=== PATIENT | female | born 1970 | race Caucasian/White ===

== ENCOUNTER → 2016-10-31 | Outpatient (CLI) | payer BC ==
--- NOTE | 2016-11-01 09:07 | MR ---
EXAMINATION TYPE: MR knee LT wo con DATE OF EXAM: 10/31/2016 9:22 PM COMPARISON: Prior left knee MRI 10 October 2014, plain film 23 October 2016 HISTORY: Lt knee pain x 2 years, fall TECHNIQUE: Multiplanar, multisequence imaging of the left knee is performed without IV contrast. FINDINGS: MEDIAL MENISCUS: Within the posterior horn of the medial meniscus there is some linear increased sign al which extends in a horizontal fashion more pronounced than on prior exam as seen on coronal image 20 of proton-density data set, lateral meniscus is intact LATERAL MENISCUS: Anterior and posterior horns are intact without tear. CRUCIATE LIGAMENTS: The anterior and posterior cruciate ligaments are intact and unremarkable. COLLATERAL LIGAMENTS: There is fluid signal along the medial collateral ligament, the ligament is att enuated as compared to previous exam suggestive of partial tear EXTENSOR MECHANISM: Visualized quadriceps and patellar tendons are intact. EFFUSION: Minimal suprapatellar effusion present. POPLITEAL CYST: No popliteal/maya cyst. TRICOMPARTMENT SPACES: Osteoarthritic changes are present, there is tricompartmental marginal spurrin g CARTILAGE: Similar to prior exam, grade 2 to grade III chondromalacia change is present in the medial lateral compartments, posterior patella, cartilage fragment seen on previous exam is no longer prese nt. BONE MARROW SIGNAL: Similar prior exam, red marrow reconversion is noted. OTHER: Subcutaneous edema changes present. IMPRESSION: Osteoarthritic change, chondromalacia as described. Findings along the medial collateral ligament sug gesting partial tear. Horizontal tear of the posterior horn of the medial meniscus is suspected seen best on the coronal image.
== END | disposition home or self-care (01) ==
LOC: RADMRIMAIN 20:33
PROVIDERS: ATTEND Orthopaedic Surgery
DX: M17.12 Unilateral primary osteoarthritis, left knee (principal); M22.42 Chondromalacia patellae, left knee

== ENCOUNTER → 2016-12-08 | Outpatient (CLI) | payer BC ==
[2016-12-08 09:05] LABS: EKG EKG PERFORMED
[2016-12-08 09:35] LABS: Anion Gap 8 mmol/L; Carbon Dioxide 28 mmol/L (22-30); Chloride 105 mmol/L (98-107); Potassium 4.3 mmol/L (3.5-5.1); Sodium 141 mmol/L (137-145)
[2016-12-08 10:57] LABS: Basophils % (A) 1 %; CH 29.8; CHCM 32.6; Eosinophils # (A) 0.2 k/uL (0-0.7); Eosinophils % (A) 3 %; HCT 43.9 % (34.0-46.0); HDW 2.25; HGB 14.3 gm/dL (11.4-16.0); Luc # (Auto) 0.13; Luc % (Auto) 2; Lymphocytes # (A) 2.2 k/uL (1.0-4.8); Lymphocytes % (A) 30 %; MCH 29.9 pg (25.0-35.0); MCHC 32.5 g/dL (31.0-37.0); MCV 91.9 fL (80.0-100.0); Mean Platelet Volume 8.3; Monocytes # (A) 0.3 k/uL (0-1.0); Monocytes % (A) 4 %; Neutrophils # (A) 4.5 k/uL (1.3-7.7); Neutrophils % (A) 61 %; RBC 4.78 m/uL (3.80-5.40); RDW 13.1 % (11.5-15.5); WBC 7.4 k/uL (3.8-10.6); WBC (Perox) 7.69
== END | disposition home or self-care (01) ==
LOC: LABPAT 08:56
PROVIDERS: ATTEND Orthopaedic Surgery
DX: Z01.810 Encounter for preprocedural cardiovascular examination (principal); M23.92 Unspecified internal derangement of left knee; Z01.812 Encounter for preprocedural laboratory examination
CPT/HCPCS: 80051; 85025; 93005

== ENCOUNTER 2016-12-11 08:37 | Day surgery (SDC) | payer BC ==
[2016-12-08 14:42] VITALS: BMI 34.7
--- NOTE | 2016-12-10 18:24 | HP ---
DATE OF ADMISSION: Francisca Hooker is a 46-year-old patient seen with progressive left knee pain. We discussed options, she elected to proceed with left knee arthroscopy. Consent was obtained. Her past medical history is asthma. Past surgical history is breast biopsy. section. Daily medications: 1. Singulair. 2. Strattera. ALLERGIES ARE NONE. SOCIAL HISTORY: Patient denies current tobacco use. Physical evaluation of the left knee: Range of motion is -3/4 to 115 degrees, tenderness medial joint line. Positive medial Imani's. Ligaments are stable. Hip rotation without pain. Distal neurovascular exam intact. Radiographs of the left knee revealed mild osteoarthritis. MRI of the left knee revealed medial meniscal tear and partial medial collateral ligament tear. IMPRESSION: Internal derangement of the left knee with medial meniscal tear. PLAN: Left arthroscopy with partial meniscectomy and debridement.
[~2016-12-11 08:37] MED LIST: DEXAMETHASONE SOD PHOSPHATE 10 MG/ML 1 ML VIAL IV ONE; LACTATED RINGERS 1,000 ML IV SCH; LIDOCAINE 1% 20 ML VIAL (10MG/ML) FOR IV START INTRADERMA PRN; MIDAZOLAM 2 MG/2 ML VIAL IV PRN; SCOPOLAMINE 1.5MG/72HR PATCH TRANSDERM ONE; ceFAZolin 2 GM in SODIUM CHLORIDE 0.9% 100 ML IVPB ONE
[2016-12-11] MEDS: ONDANSETRON 4 MG/2 ML VIAL IVP ONE ×2 (09:30→11:05)
[2016-12-11] MEDS ORDERED: PROPOFOL 10 MG/ML 20 ML VIAL IV ONE (09:45)
[2016-12-11] MEDS ORDERED: SUCCINYLCHOLINE CHLORIDE 100 MG/5 ML SYR IV ONE (09:45)
[2016-12-11] MEDS ORDERED: MIDAZOLAM 2 MG/2 ML VIAL ONE (09:45)
[2016-12-11] MEDS ORDERED: fentaNYL (PF) 50 MCG/ML 2 ML AMP ONE (09:45)
[2016-12-11] MEDS ORDERED: LIDOCAINE 1% INJ 10MG/ML (20 ML MDV) ONE (09:45)
[2016-12-11] MEDS ORDERED: HYDROmorphone (PF) 1 MG/ML ONE (09:45)
[2016-12-11] MEDS ORDERED: BUPIVACAIN-EPI 0.25%-1:200,000 30 ML VIAL INTRAARTIC ONE (10:25)
--- NOTE | 2016-12-11 10:44 | P.OP ---
Date of Procedure: 12/11/16 Preoperative Diagnosis: Internal derangement left knee Postoperative Diagnosis: 1. Tear medial and lateral meniscus left knee 2. Grade 2/3 chondromalacia medial femoral condyle left knee 3. Grade 3/4 chondromalacia lateral femoral condyle left knee 4. Grade 3/4 chondromalacia lateral tibial plateau left knee 5. Grade 3/4 chondromalacia patella left knee 6. Reactive synovitis medial and suprapatellar compartments left knee Procedure(s) Performed: 1. Arthroscopic partial medial and lateral meniscectomy left knee 2. Arthroscopic chondroplasty medial femoral condyle left knee 3. Arthroscopic chondroplasty lateral femoral condyle left knee 4. Arthroscopic chondroplasty lateral tibial plateau left knee 5. Arthroscopic chondroplasty patella left knee 6. Arthroscopic partial synovectomy medial and suprapatellar compartments left knee Implants: None Anesthesia: KIKO, local Surgeon: Kodi Escobar Estimated Blood Loss (ml): 10 Pathology: none sent Condition: stable Disposition: PACU Indications for Procedure: 46-year-old patient seen with progressive left knee pain. After having treatment options discussed, she elected to proceed with arthroscopy. Operative Findings: see description of procedure Description of Procedure: Patient was taken to the operative suite. Patient underwent a general anesthetic by the department of anesthesia. Patient was given preoperative antibiotics. The left lower extremity was placed in a well-padded arthroscopic leg merino. The left leg was prepped and draped in the normal sterile orthopedic fashion. A lateral parapatellar and suprapatellar incision was made. Trochars were inserted. Arthroscopy was initiated. Suprapatellar pouch revealed thick reactive synovitis. The patellofemoral joint appeared to articulate congruently. There there was grade 3 and 4 chondromalacia changes of both the patella and femoral sulcus with osteochondral tears present. The scope was guided into the medial gutter. No loose bodies or plica were identified. The scope was then guided into the medial compartment. A medial parapatellar incision was made. Trocar inserted followed by probe. There was a radial tear involving the posterior horn of the medial meniscus. There were grade 2-3 chondromalacia changes of medial femoral condyle with weightbearing area osteochondral tears present. Grade 1, changes of the tibial plateau. Reactive synovitis anteriorly. No loose bodies. Partial medial meniscectomy was performed down to stable tissue. I performed a chondroplasty of the medial femoral condyle down to stable tissue and partial synovectomy. The residual meniscus was probed and found to be stable. The residual osteochondral surface weightbearing area medial femoral condyle was found to be stable with grade 3 chondromalacia changes. Scope and probe were then guided into the intercondylar notch. Cruciates were identified, probed and found to be stable. The scope and probe were then guided into lateral compartment. There was a radial tear involving the posterior horn of the lateral meniscus. There was a central area lateral femoral condyle with grade 3 and 4 chondral moist changes a large osteochondral tear. There were grade 3 and 4 chondral changes of the lateral tibial plateau with some osteochondral tears present. There were no loose bodies. A partial lateral meniscectomy was performed on a stable tissue. I performed a chondroplasty of both the lateral femoral condyle and tibial plateau down to stable tissue. The residual meniscus was found to be stable. The residual osteochondral surfaces of the lateral femoral condyle and tibial plateau were stable. We again noted areas approaching grade 4 chondromalacia on both sides. The scope was in guided back into the suprapatellar compartment. I introduced a motorized shaver into the super patellar compartment. I debrided some piecemeal fragments of meniscus I encountered. I performed a chondroplasty of the patella and femoral sulcus down to stable tissue. I performed a partial synovectomy. Shaver was removed. We took more look around the entire knee, no residual debris was identified. Instruments were now removed from the joint. The joint was infiltrated with .25% Marcaine. Steri-Strips were applied to the portal sites. Sterile dressings were applied. The patient was placed into a ALYSSA hose. No tourniquet was utilized. The patient was awakened, transferred to a bed and taken to recovery stable satisfactory condition.
[2016-12-11 10:45] VITALS: TEMP 97.8
[2016-12-11] MEDS: HYDROmorphone 1 MG/ML 1 ML SYRINGE IVP PRN ×4 (11:04→11:33)
[2016-12-11 12:22] VITALS: RESP 16
[2016-12-11] MEDS ORDERED: HYDROcodone/APAP 5-325MG 1 EACH TAB PO ONE (12:35)
[2016-12-11 13:03] VITALS: BP 107/71; PULSE 86
[2016-12-11] MEDS ORDERED: ONDANSETRON 4 MG/2 ML VIAL IVP ONE (13:27)
== END 2016-12-11 13:48 | disposition home or self-care (01) ==
LOC: OR 08:37
PROVIDERS: ATTEND Orthopaedic Surgery
DX: S83.282A Other tear of lateral meniscus, current injury, left knee, initial encounter (principal); M65.9 Synovitis and tenosynovitis, unspecified; S83.242A Other tear of medial meniscus, current injury, left knee, initial encounter; M22.42 Chondromalacia patellae, left knee; M17.12 Unilateral primary osteoarthritis, left knee; X58.XXXA Exposure to other specified factors, initial encounter; Z79.899 Other long term (current) drug therapy
CPT/HCPCS: 81025; 29880; J2250; J1100; J0690; J2405; J2001; J3010; J1170; J0330; J2704

== ENCOUNTER → 2017-07-07 | Outpatient (CLI) | payer BC ==
--- NOTE | 2017-07-07 22:04 | MR ---
EXAMINATION TYPE: MR knee RT wo con DATE OF EXAM: 07/07/2017 COMPARISON: Outside right knee x-ray June 23, 2017 HISTORY: Right knee pain with Locking x6 months TECHNIQUE: Multiplanar, multisequence images of the knee is performed without IV contrast. FINDINGS: MEDIAL MENISCUS: Anterior horn is intact without tear. There is fraying with globular increased signa l superior surface posterior horn sagittal image 8. There is some abnormal medial bowing of medial me niscus on coronal images LATERAL MENISCUS: Anterior and posterior horns are intact without tear. CRUCIATE LIGAMENTS: The anterior and posterior cruciate ligaments are intact and unremarkable. COLLATERAL LIGAMENTS: The medial collateral ligament and lateral collateral ligament complex are inta ct. Mild fluid signal surrounds medial collateral ligament. EXTENSOR MECHANISM: Visualized quadriceps and patellar tendons are intact. EFFUSION: No significant suprapatellar joint effusion. POPLITEAL CYST: No popliteal/maya cyst. TRICOMPARTMENT SPACES: Ytic-my-[id number] joint space loss medial tibiofemoral compartment is seen. No significant spurring is identified. CARTILAGE: There is chondromalacia patella with thinning of articular cartilage posterior patellar po le seen best sagittal image 14 and axial image 18 along medial aspect. No full-thickness cartilaginou s loss is present. There is thinning of articular cartilage medial tibiofemoral compartment. BONE MARROW SIGNAL: No focal abnormal marrow signal is appreciated. OTHER: No additional significant abnormality is appreciated. IMPRESSION: 1. Full-thickness tear posterior horn of medial meniscus. 2. Mild MCL sprain. 3. Mild to moderate degenerative changes most prominent medial tibiofemoral compartment as detailed a isabelle.
== END | disposition home or self-care (01) ==
LOC: RADMRIMAIN 21:05
PROVIDERS: ATTEND Orthopaedic Surgery
DX: S83.241A Other tear of medial meniscus, current injury, right knee, initial encounter (principal); S83.411A Sprain of medial collateral ligament of right knee, initial encounter

== ENCOUNTER → 2017-12-07 | Outpatient (CLI) | payer BC ==
[2017-12-07 10:49] LABS: Basophils % (A) 1 %; Eosinophils # (A) 0.2 k/uL (0-0.7); Eosinophils % (A) 2 %; HCT 44.8 % (34.0-46.0); HGB 14.7 gm/dL (11.4-16.0); Lymphocytes # (A) 2.6 k/uL (1.0-4.8); Lymphocytes % (A) 29 %; MCH 29.4 pg (25.0-35.0); MCHC 32.7 g/dL (31.0-37.0); MCV 89.9 fL (80.0-100.0); Mean Platelet Volume 6.7; Monocytes # (A) 0.2 k/uL (0-1.0); Monocytes % (A) 3 %; Neutrophils # (A) 5.6 k/uL (1.3-7.7); Neutrophils % (A) 64 %; Platelet Count 321 k/uL (150-450); RBC 4.99 m/uL (3.80-5.40); RDW 13.4 % (11.5-15.5); WBC 8.8 k/uL (3.8-10.6)
[2017-12-07 11:06] LABS: Potassium 4.3 mmol/L (3.5-5.1)
== END | disposition home or self-care (01) ==
LOC: LABPAT 10:33
PROVIDERS: ATTEND Orthopaedic Surgery
DX: Z01.812 Encounter for preprocedural laboratory examination (principal); M23.91 Unspecified internal derangement of right knee
CPT/HCPCS: 36415; 80051; 85025

== ENCOUNTER 2017-12-17 07:27 | Day surgery (SDC) | payer BC ==
--- NOTE | 2017-12-16 16:12 | HP ---
HISTORY AND PHYSICAL REASON FOR ADMISSION: Surgery scheduled for 12/17/2017. HISTORY OF PRESENT ILLNESS: Loren Hooker is a 47-year-old patient seen with progressive right knee pain. Treatment options were discussed. She elected to proceed with arthroscopy. Consent was obtained. PAST MEDICAL HISTORY: Her past medical history is asthma. PAST SURGICAL HISTORY: Breast biopsy, section. MEDICATIONS: ibuprofen. ALLERGIES: None reported. SOCIAL HISTORY: Patient denies tobacco use. PHYSICAL EXAMINATION: Evaluation of the right knee range of motion -1 to 120 degrees. Mild effusion. Tenderness along the medial joint line. Positive medial Imani's. Crepitus medial patellofemoral compartments with range of motion. Ligaments stable. Hip rotation without pain. Distal neurovascular exam intact. RADIOGRAPHS: Radiographs of the right knee revealed mild medial and patellofemoral compartment osteoarthritis. An MRI of the right knee revealed a medial meniscal tear. IMPRESSION: 1. Internal derangement, right knee with medial meniscal tear. 2. Right knee osteoarthritis. 3. Asthma. PLAN: Right knee arthroscopy with partial meniscectomy and debridement. Surgery scheduled 12/17/17. MMODL / IJN: [id number] /
[~2017-12-17 07:27] MED LIST changes: -LIDOCAINE 1% 20 ML VIAL (10MG/ML) FOR IV START INTRADERMA PRN; -MIDAZOLAM 2 MG/2 ML VIAL IV PRN; +ONDANSETRON 4 MG/2 ML VIAL IVP ONE; -SCOPOLAMINE 1.5MG/72HR PATCH TRANSDERM ONE; -ceFAZolin 2 GM in SODIUM CHLORIDE 0.9% 100 ML IVPB ONE
[2017-12-17] MEDS ORDERED: LIDOCAINE 1% 20 ML VIAL (10MG/ML) FOR IV START INTRADERMA ONE (08:33)
[2017-12-17] MEDS ORDERED: SCOPOLAMINE 1.5MG/72HR PATCH TRANSDERM ONE (08:43)
[2017-12-17] MEDS ORDERED: PROPOFOL 10 MG/ML 20 ML VIAL IV ONE (08:49)
[2017-12-17] MEDS ORDERED: MIDAZOLAM 2 MG/2 ML VIAL ONE (08:49)
[2017-12-17] MEDS ORDERED: LIDOCAINE 1% INJ 10MG/ML (20 ML MDV) ONE (08:49)
[2017-12-17] MEDS ORDERED: fentaNYL (PF) 50 MCG/ML 2 ML AMP ONE (08:49)
[2017-12-17] MEDS ORDERED: HYDROmorphone (PF) 1 MG/ML ONE (08:49)
[2017-12-17] MEDS ORDERED: SUCCINYLCHOLINE CHLORIDE 100 MG/5 ML SYR IV ONE (08:49)
[2017-12-17] MEDS ORDERED: BUPIVACAINE (PF) 0.5% 30 ML VIAL SQ ONE (09:29)
--- NOTE | 2017-12-17 09:52 | P.OP ---
Date of Procedure: 12/17/17 Preoperative Diagnosis: Internal derangement right knee Postoperative Diagnosis: 1. Tear medial and lateral meniscus right knee 2. Grade 2/3 chondromalacia medial femoral condyle right knee 3. Grade 3/4 chondromalacia lateral tibial plateau right knee 4. Grade 3/4 chondromalacia patellofemoral joint right knee 5. Reactive synovitis medial and suprapatellar compartments right knee Procedure(s) Performed: 1. Arthroscopic partial medial and lateral meniscectomy right knee 2. Arthroscopic chondroplasty medial femoral condyle right knee 3. Arthroscopic chondroplasty lateral tibial plateau right knee 4. Arthroscopic chondroplasty patellofemoral joint right knee 5. Arthroscopic partial synovectomy medial and suprapatellar compartments right knee Implants: none Anesthesia: KIKO, local Surgeon: Kodi Escobar Estimated Blood Loss (ml): 11 Pathology: none sent Condition: stable Disposition: PACU Indications for Procedure: 47-year-old patient seen with progressive right knee pain. After treatment options were discussed, she elected to proceed with arthroscopy. Operative Findings: see description of procedure Description of Procedure: Patient was taken to the operative suite. Patient underwent a general anesthetic by the department of anesthesia. Patient was given preoperative antibiotics. The right lower extremity was placed in a well-padded arthroscopic leg merino. The right leg was prepped and draped in the normal sterile orthopedic fashion. A lateral parapatellar and suprapatellar incision was made. Trochars were inserted. Arthroscopy was initiated. Suprapatellar pouch revealed diffuse thick reactive synovitis. The patellofemoral joint appeared to articulate congruently. There was grade 3 chondromalacia patella and grade 3/4 chondral malacia of the femoral sulcus both having osteochondral tears present. The scope was guided into the medial gutter. No loose bodies or plica was identified .The scope was then guided into the medial compartment. A medial parapatellar incision was made. Trocar inserted followed by probe. There was a complex tear involving the posterior horn medial meniscus which extended into the midbody. There was grade 2/3 chondromalacia changes of the medial femoral condyle with osteochondral tears present. There was reactive synovitis anteriorly. I performed a partial medial meniscectomy down to stable tissue. I performed a chondroplasty of the medial femoral condyle down to stable tissue. I performed a partial synovectomy. The residual meniscus was stable. The residual osteochondral surface of the femoral condyle was stable. There was good decompression of the synovitis. Scope and probe were then guided into the intercondylar notch. Cruciates were identified, probed and found to be stable. The scope and probe were then guided into lateral compartment. There was a radial tear involving the mid body of the lateral meniscus. There were areas of grade 3 and 4 chondromalacia changes of the tibial plateau with osteochondral tears present. I performed a lateral meniscectomy down to stable tissue. I performed a chondroplasty of the tibial plateau down to stable tissue. The residual meniscus was probed and found to be stable. The residual osteochondral surface was stable again noted grade 3/4 chondromalacia changes of the tibial plateau. The scope was in guided back into the suprapatellar compartment. I introduced a motorized shaver into the suprapatellar compartment. I debrided piecemeal fragments of meniscus I encountered. I performed a chondroplasty of the patella and femoral sulcus getting down to stable osteochondral tissue. I performed a partial synovectomy. The shaver was removed. I now took one more look on the entire knee, no residual debris. Instruments were now removed from the joint. The joint was infiltrated with .25% Marcaine. The portal sites were approximated with nylon suture. Sterile dressings were applied. The patient was placed into a ALYSSA hose. No tourniquet was utilized. The patient was awakened, transferred to a bed and taken to recovery stable satisfactory condition.
[2017-12-17 09:54] VITALS: TEMP 97.2
[2017-12-17] MEDS: HYDROmorphone 0.5 MG/0.5 ML SYRINGE IVP PRN ×4 (10:06→10:20)
[2017-12-17] MEDS ORDERED: KETOROLAC 30 MG/ML 1 ML VIAL IVP ONE (10:07)
[2017-12-17] MEDS ORDERED: HYDROcodone/APAP 5-325MG 1 EACH TAB PO ONE (11:21)
[2017-12-17 11:47] VITALS: PULSE 72
[2017-12-17 12:07] VITALS: BP 108/72; RESP 18
[2017-12-18] MEDS ORDERED: ceFAZolin IN SWFI 2 GM/20 ML SYRINGE IVP ONE (06:00)
== END 2017-12-17 14:01 | disposition home or self-care (01) ==
LOC: OR 07:27
PROVIDERS: ATTEND Orthopaedic Surgery
DX: M23.321 Other meniscus derangements, posterior horn of medial meniscus, right knee (principal); M23.361 Other meniscus derangements, other lateral meniscus, right knee; M65.861 Other synovitis and tenosynovitis, right lower leg; M22.41 Chondromalacia patellae, right knee; J45.909 Unspecified asthma, uncomplicated; M17.11 Unilateral primary osteoarthritis, right knee; K21.9 Gastro-esophageal reflux disease without esophagitis; F90.9 Attention-deficit hyperactivity disorder, unspecified type; Z79.1 Long term (current) use of non-steroidal anti-inflammatories (NSAID); Z79.891 Long term (current) use of opiate analgesic; Z79.899 Other long term (current) drug therapy
CPT/HCPCS: 81025; 29880; J2250; J1100; J2405; J2001; J3010; J1885; J1170 ×2; J0330; J2704; J0690

== ENCOUNTER → 2018-10-26 | Outpatient (CLI) | payer BC ==
--- NOTE | 2018-10-27 07:41 | US ---
EXAMINATION TYPE: US pelvis complete transvag DATE OF EXAM: 10/26/2018 COMPARISON: NONE CLINICAL HISTORY: N92.0 Excessive and frequent menstruation. Irregular menses. TECHNIQUE: Transvaginal (TV) and Transabdominal (TA) . Transabdominal sonographic images of the pel vis were acquired. Transvaginal sonographic images were medically necessary to better assess the fol lowing anatomy: Ovaries Date of LMP: 10/06/2018, EXAM MEASUREMENTS: Uterus: 7.6 x 5.2 x 4.1 cm Endometrial Stripe: 0.5 cm Right Ovary: 1.9 x 0.9 cm Left Ovary: 2.7 x 1.2 x 1.0 cm 1. Uterus: Retroverted Heterogenous. Focal lesions visualized. Largest on right - 1.3 x 1.4 x 1.3 cm. Largest on left - 1.0 x 1.1 x 1.2 cm. 2. Endometrium: wnl as visualized 3. Right Ovary: wnl 4. Left Ovary: wnl, limited visualization due to location 5. Bilateral Adnexa: wnl 6. Posterior cul-de-sac: no free fluid Cervix- fluid seen within canal. Vascular lesion visualized = 0.6 x 0.4 x 0.3 cm IMPRESSION: 1. Leiomyomatous change of the uterus. 2. Endocervical fluid identified with vascular lesion noted. Consider direct visualization and BOOKKEEPER co nsult
== END ==
LOC: RADUSWWP 16:29
PROVIDERS: ATTEND Family Medicine
DX: D25.9 Leiomyoma of uterus, unspecified (principal); I99.8 Other disorder of circulatory system
CPT/HCPCS: 76830; 76856

== ENCOUNTER → 2019-01-13 | Outpatient (CLI) | payer BC ==
--- NOTE | 2019-01-14 11:46 | MM ---
Reason for exam: screening (asymptomatic). Last mammogram was performed 3 years and 1 month ago. History: Patient had first child at age 34. Family history of breast cancer in paternal grandmother. Reductions of both breasts, December 2009. Benign cyst aspiration. Took hormonal contraceptives for 10 years. Physical Findings: A clinical breast exam by your physician is recommended on an annual basis and results should be correlated with mammographic findings. MG 3D Screening Mammo W/Cad Bilateral CC and MLO view(s) were taken. Prior study comparison: December 12, 2015, bilateral MG screening mammo w CAD. August 17, 2012, CAD bilateral diagnostic mammogram. There are scattered fibroglandular densities. There is no discrete abnormality. No significant changes when compared with prior studies. ASSESSMENT: Negative, BI-RAD 1 RECOMMENDATION: Routine screening mammogram of both breasts in 1 year.
== END | disposition home or self-care (01) ==
LOC: RADMAMWWP 10:47
PROVIDERS: ATTEND Family Medicine
DX: Z12.31 Encounter for screening mammogram for malignant neoplasm of breast (principal)
CPT/HCPCS: 77063; 77067

== ENCOUNTER → 2021-07-22 | Outpatient (CLI) | payer BC ==
--- NOTE | 2021-07-24 09:02 | MM ---
Reason for exam: screening (asymptomatic). Last mammogram was performed 2 years and 6 months ago. History: Patient had first child at age 34. Family history of breast cancer in paternal grandmother. Reductions of both breasts, December 2009. Benign cyst aspiration. Taking hormonal contraceptives for 10 years. Physical Findings: A clinical breast exam by your physician is recommended on an annual basis and results should be correlated with mammographic findings. MG 3D Screening Mammo W/Cad Bilateral CC and MLO view(s) were taken. Prior study comparison: January 13, 2019, bilateral MG 3d screening mammo w/cad. December 12, 2015, bilateral MG screening mammo w CAD. The breast tissue is almost entirely fat. No significant changes when compared with prior studies. ASSESSMENT: Negative, BI-RAD 1 RECOMMENDATION: Routine screening mammogram of both breasts in 1 year.
== END | disposition home or self-care (01) ==
LOC: RADMAMWWP 16:37
PROVIDERS: ATTEND Family Medicine
DX: Z12.31 Encounter for screening mammogram for malignant neoplasm of breast (principal); Z80.3 Family history of malignant neoplasm of breast
CPT/HCPCS: 77063; 77067

== ENCOUNTER → 2022-09-22 | Outpatient (CLI) | payer BC ==
--- NOTE | 2022-09-22 14:18 | MR ---
EXAMINATION TYPE: MR knee LT wo con DATE OF EXAM: 09/22/2022 COMPARISON: 10/31/2016 HISTORY: M25.562 L knee pain TECHNIQUE: Multiplanar, multisequence images of the knee is performed without IV contrast. FINDINGS: MEDIAL MENISCUS: Anterior horn is intact. Chronic radial tear posterior horn medial meniscus. LATERAL MENISCUS: Anterior and posterior horns are intact without tear. CRUCIATE LIGAMENTS: The anterior and posterior cruciate ligaments are intact and unremarkable. COLLATERAL LIGAMENTS: The medial collateral ligament and lateral collateral ligament complex are inta ct and unremarkable. EXTENSOR MECHANISM: Visualized quadriceps and patellar tendons are intact. EFFUSION: No significant suprapatellar joint effusion. POPLITEAL CYST: No popliteal/maya cyst. TRICOMPARTMENT SPACES: Moderate narrowing 3 compartments of the left knee compatible with osteoarthri tis. Changes of chondromalacia patella. CARTILAGE: Cartilaginous thinning medial and lateral femoral condyles and at the patellofemoral joint . BONE MARROW SIGNAL: No focal abnormal marrow signal is appreciated. OTHER: No additional significant abnormality is appreciated. IMPRESSION: 1. Changes of osteoarthritis. 2. Cartilaginous thinning. 3. Chronic radial tear posterior horn medial meniscus.
== END | disposition home or self-care (01) ==
LOC: RADMRIMAIN 12:44
PROVIDERS: ATTEND Orthopaedic Surgery
DX: M17.12 Unilateral primary osteoarthritis, left knee (principal); M23.222 Derangement of posterior horn of medial meniscus due to old tear or injury, left knee; M25.862 Other specified joint disorders, left knee

== ENCOUNTER → 2022-11-22 | Outpatient (CLI) | payer BC ==
[2022-11-22 14:16] LABS: Basophils # (A) 0.05 X 10*3/uL (0.00-0.10); Basophils % (A) 0.5 %; Eosinophils # (A) 0.22 X 10*3/uL (0.04-0.35); Eosinophils % (A) 2.2 %; HCT 43.9 % (37.2-46.3); HGB 14.2 g/dL (12.0-15.0); Immature Grans, Automated 0.5 %; Lymphocytes # (A) 2.82 X 10*3/uL (0.90-5.00); Lymphocytes % (A) 27.6 %; MCH 29.7 pg (27.0-32.0); MCHC 32.3 g/dL (32.0-37.0); MCV 91.8 fL (80.0-97.0); Mean Platelet Volume 10.5 fL (9.5-12.2); Monocytes # (A) 0.59 X 10*3/uL (0.20-1.00); Monocytes % (A) 5.8 %; NRBC Per 100 WBC 0 /100 WBCS (0.0-0.0); Neutrophils # (A) 6.47 X 10*3/uL (1.80-7.70); Neutrophils % (A) 63.4 %; Platelet Count 368 X 10*3/uL (140-440); RBC 4.78 X 10*6/uL (4.10-5.20); RDW 14.1 % (11.5-14.5)
[2022-11-22 14:24] LABS: Anion Gap 11.5 mmol/L (10.00-18.00); Carbon Dioxide 24.5 mmol/L (20.0-27.5); Potassium 4.5 mmol/L (3.5-5.5)
== END | disposition home or self-care (01) ==
LOC: LABPAT 08:28
PROVIDERS: ATTEND Orthopaedic Surgery
DX: Z01.818 Encounter for other preprocedural examination (principal); M23.92 Unspecified internal derangement of left knee
CPT/HCPCS: 80051; 85025; 93005

== ENCOUNTER 2022-12-11 12:47 | Day surgery (SDC) | payer BC ==
[2022-12-08 14:49] VITALS: BMI 41.1
--- NOTE | 2022-12-10 13:45 | HP ---
HISTORY AND PHYSICAL DATE OF SCHEDULED SURGERY: 12/11/2022. HISTORY OF PRESENT ILLNESS: Loren Hooker is a 52-year-old patient seen with progressive left knee pain. We discussed options for treatment. The patient elected to proceed with left knee arthroscopy. Consent regarding the procedure was obtained. PAST MEDICAL HISTORY: Asthma and gastroesophageal reflux disease. PAST SURGICAL HISTORY: Breast biopsy, section, left knee arthroscopy. DAILY MEDICATIONS: 1. Singular. 2. Famotidine. 3. Motrin. 4. Pulmicort. ALLERGIES: None. SOCIAL HISTORY: She denies tobacco use. PHYSICAL EVALUATION OF LEFT KNEE: Range of motion 0-130 degrees. Mild effusion. Tenderness medial lateral joint lines. Positive medial Imani's. Positive lateral Imani's. Ligaments are stable. Hip rotation is without pain. Distal neurovascular exam is intact. RADIOGRAPHS: Radiographs of the left knee revealed moderate medial compartment osteoarthritis. MRI of the left knee revealed medial meniscal tear. IMPRESSION: 1. Internal derangement of left knee with medial meniscal tear. 2. Asthma. PLAN: Left knee arthroscopy with partial medial meniscectomy and debridement. MMODL / IJN: [id number] /
[~2022-12-11 12:47] MED LIST changes: -DEXAMETHASONE SOD PHOSPHATE 10 MG/ML 1 ML VIAL IV ONE; +DEXAMETHASONE SOD PHOSPHATE 4 MG/ML 1 ML VIAL IV ONE
[2022-12-11] MEDS ORDERED: LACTATED RINGERS 1,000 ML IV ONE (13:00)
[2022-12-11 13:33] LABS: Glucose,Whole Blood 107 mg/dL (70-110)
[2022-12-11] MEDS ORDERED: ALBUTEROL NEBULIZED 2.5 MG/3 ML INHALATION ONE ×3 (14:03→15:40)
[2022-12-11] MEDS ORDERED: HYDROCORTISONE SUCCINATE 100 MG/2 ML VIAL IV ONE (14:05)
[2022-12-11] MEDS ORDERED: BUPIVACAINE (PF) 0.25% 30 ML VIAL SQ ONE ×2 (14:32→15:19)
[2022-12-11] MEDS ORDERED: fentaNYL (PF) 50 MCG/ML 2 ML AMP ONE (14:43)
[2022-12-11] MEDS ORDERED: PROPOFOL 10 MG/ML 20 ML VIAL IV ONE (14:43)
[2022-12-11] MEDS ORDERED: HYDROmorphone (PF) 1 MG/ML ONE (14:43)
[2022-12-11] MEDS ORDERED: MIDAZOLAM 2 MG/2 ML VIAL ONE (14:43)
[2022-12-11] MEDS: HYDROmorphone 0.5 MG/0.5 ML SYRINGE IVP PRN ×3 (15:35→16:01)
--- NOTE | 2022-12-11 15:37 | P.OP ---
Date of Procedure: 12/11/22 Preoperative Diagnosis: Internal derangement left knee Postoperative Diagnosis: 1. Tear medial and lateral meniscus left knee 2. Grade 4 chondromalacia medial femoral condyle left knee 3. Reactive synovitis medial, lateral and suprapatellar compartments left knee Procedure(s) Performed: 1. Arthroscopic partial medial and lateral meniscectomy left knee 2. Arthroscopic microfracture medial femoral condyle left knee 3. Arthroscopic partial synovectomy medial, lateral and suprapatellar compartments left knee 4. Arthroscopic chondroplasty medial femoral condyle left knee Anesthesia: MAREKA, local Surgeon: Kodi Escobar Estimated Blood Loss (ml): 8 Pathology: none sent Condition: stable Disposition: PACU Indications for Procedure: 52-year-old patient seen with progressive left knee pain. After having treatment options discussed, she elected to proceed with arthroscopy. Operative Findings: see description of procedure Description of Procedure: Patient was taken to the operative suite. Patient underwent a general anesthetic by the department of anesthesia. Patient was given preoperative antibiotics. The left lower extremity was placed in a well-padded arthroscopic leg merino. The left leg was prepped and draped in the normal sterile orthopedic fashion. A lateral parapatellar and suprapatellar incision was made. Trochars were inserted. Arthroscopy was initiated. Suprapatellar pouch revealed diffuse thick reactive synovitis. The patellofemoral joint appeared to articulate congruently with grade 2 chondromalacia changes present involving the patella and grade 3, changes involving the femoral sulcus. There were no osteochondral tears present. The scope was guided into the medial gutter. No loose bodies or plica were identified. The scope was then guided into the medial compartment. A medial parapatellar incision was made. Trocar inserted followed by probe. There was a complex tear involving the posterior horn medial meniscus extending into the midbody area. There were grade 3/4 chondromalacia changes of the femoral condyle and tibial plateau with some diffuse osteochondral tears present involving the femoral condyle. There was some thick reactive synovitis anteriorly. I performed a partial medial meniscectomy getting down to stable meniscal tissue. I performed a chondroplasty of the medial femoral condyle getting down to stable osteochondral tissue. I performed a partial synovectomy decompressing the reactive synovitis. I noted areas of grade 4 chondromalacia/exposed bone needle femoral condyle weightbearing surface measuring approximately 1.3 cm. I introduced a microfracture awl and performed a microfracture to that area penetrating the bone with resultant bleeding at the microfracture site. At this point the residual meniscus was probed and was found to be stable. The residual osteochondral surface appears stable. There was good decompression of the synovitis. Scope and probe were then guided into the intercondylar notch. Cruciates were identified, probed and found to be stable. The scope and probe were then guided into lateral compartment. There was a radial tear involving the posterior horn of the lateral meniscus. There was reactive synovitis anteriorly. There were grade 1 chondromalacia changes lateral tibial plateau. I performed a partial lateral meniscectomy getting down to stable meniscal tissue. I performed a partial synovectomy decompressing the reactive synovitis. The residual meniscus was found to be stable. There was good decompression of the synovitis. The scope was in guided back into the suprapatellar compartment. I introduced a motorized shaver into the super patellar compartment. I debrided some piecemeal fragments of meniscus that I encountered. I performed a partial synovectomy. The shaver was now removed. There was good decompression of the synovitis. I now took one more look around the entire knee, no residual debris. Instruments were now removed from the joint. The joint was infiltrated with .25% Marcaine. Steri-Strips were applied to the portal sites. Sterile dressings were applied. The patient was placed into a ALYSSA hose. No tourniquet was utilized. The patient was awakened, tra nsferred to a bed and taken to recovery stable satisfactory condition.
[2022-12-11 15:59] VITALS: RESP 20; TEMP 98
[2022-12-11] MEDS ORDERED: fentaNYL (PF) 50 MCG/1 ML VIAL IV ONE (16:14)
[2022-12-11 17:19] VITALS: PULSE 114
[2022-12-11 17:20] VITALS: BP 146/83
== END 2022-12-11 17:27 | disposition home or self-care (01) ==
LOC: OR 12:47
PROVIDERS: ATTEND Orthopaedic Surgery
DX: S83.282A Other tear of lateral meniscus, current injury, left knee, initial encounter (principal); S83.242A Other tear of medial meniscus, current injury, left knee, initial encounter; M94.262 Chondromalacia, left knee; M65.862 Other synovitis and tenosynovitis, left lower leg; M17.12 Unilateral primary osteoarthritis, left knee; K21.9 Gastro-esophageal reflux disease without esophagitis; Z98.891 History of uterine scar from previous surgery; Z79.899 Other long term (current) drug therapy; Z98.890 Other specified postprocedural states; X58.XXXA Exposure to other specified factors, initial encounter
CPT/HCPCS: 29880; 29879; J2250; J1100; J1720; J0690; J2405; J3010 ×2; J1170 ×2; J2704

== ENCOUNTER → 2024-01-05 | Outpatient (CLI) | payer BC ==
--- NOTE | 2024-01-13 21:52 | MM ---
Reason for Exam: Screening (asymptomatic). Last mammogram was performed 2 year(s) and 6 month(s) ago. Patient History: Menarche at age 11. First Full-Term at age 34. Late child-bearing (after 29). Patient has history of breast feeding. Currently using Hormonal Contraceptives, for 10 years. 12/2009, Bilateral Reduction. , Benign Cyst Aspiration. Paternal grandmother had breast cancer. Risk Values: Carmela 5 year model risk: 1.6%. NCI Lifetime model risk: 11.4%. Prior Study Comparison: 12/12/2015 Bilateral Screening Mammogram, [facility]. 01/13/2019 Bilateral Screening Mammogram, [facility]. 07/22/2021 Bilateral Screening Mammogram, [facility]. Tissue Density: The breasts are almost entirely fatty. Findings: Analyzed By CAD. Low axillary tail lymph nodes are redemonstrated on the left. There is no suspicious group of microcalcifications or new suspicious mass in either breast. Overall Assessment: Negative, BI-RAD 1 Management: Screening Mammogram of both breasts in 1 year. . Patient should continue monthly self-breast exams. A clinical breast exam by your physician is recommended on an annual basis. This exam should not preclude additional follow-up of suspicious palpable abnormalities. Note on Carmela scores and lifetime risk: 1. A Carmela score greater than 3% is considered moderate risk. If this is the case, consider specialist referral to assess eligibility for a risk reducing agent. 2. If overall lifetime risk for the development of breast cancer is 20% or higher, the patient may qualify for future screening with alternating mammogram and breast MRI. Electronically signed and approved by: Gilberto Wilcox M.D. Radiologist
== END | disposition home or self-care (01) ==
LOC: RADMAMWWP 08:02
PROVIDERS: ATTEND Family Medicine
DX: Z12.31 Encounter for screening mammogram for malignant neoplasm of breast (principal); Z80.3 Family history of malignant neoplasm of breast
CPT/HCPCS: 77063; 77067

== ENCOUNTER → 2024-07-15 | Outpatient (CLI) | payer BC ==
--- NOTE | 2024-07-15 15:40 | US ---
EXAMINATION TYPE: US transvaginal DATE OF EXAM: 07/15/2024 COMPARISON: 10/26/18 CLINICAL INDICATION: Female, 53 years old with history of N92.0 EXCESSIVE AND FREQUENT MENSTRUATION; pt had heavy bleeding in March 2024. Pt went 6 years prior without period. . 2 c-sections TECHNIQUE: Transvaginal (TV). Doppler imaging: Not performed. FINDINGS: Date of LMP: March EXAM MEASUREMENTS: Uterus: 6.7 x 4.2 x 3.9 Endometrial Stripe: 0.28 Right Ovary: 1.5 x 0.9 x 0.7cm Left Ovary: not seen due to atrophy 1. Uterus: Retroverted multiple fibroids seen. Largest measuring 2.3 x 1.8 x 1.5cm. Cervix appears h ypoechoic and heterogeneous 2. Endometrium: fluid seen within 3. Right Ovary: appears wnl 4. Left Ovary: not seen due to atrophy 5.bilateral Adnexa: wnl 6. Posterior cul-de-sac: wnl Retroverted uterus and multiple heterogenous fibroid seen. Endometrium is normal thickness with simpl e appearing fluid identified within the endometrial canal. Right ovary appears unremarkable. Left ova ry is not visualized. No free fluid. Cervix appears hypoechoic and heterogenous in appearance. IMPRESSION: 1. Nonspecific heterogenous hypoechoic appearance of the cervix. Direct visualization is recommended to rule out underlying lesion. 2. Fibroid changes of the uterus. 3. Simple-appearing fluid within the endometrial canal. [facility], , 07/15/2024 3:38 PM
== END | disposition home or self-care (01) ==
LOC: RADUSWWP 14:24
PROVIDERS: ATTEND Family Medicine
DX: N92.0 Excessive and frequent menstruation with regular cycle (principal); D25.9 Leiomyoma of uterus, unspecified
CPT/HCPCS: 76830